=== PATIENT | female | born 1945 | race African-American/Black ===

== ENCOUNTER 2024-03-20 13:26 | Emergency (ER) | payer BC, OTHER ==
[~2024-03-20] VITALS: Ht 157.5 cm; Wt 59.0 kg
[2024-03-20 13:32] VITALS: BP_SYST 140; PULSE 72; RESP 16; TEMP 98.7; O2SAT 99
[2024-03-20] MEDS: HYDROcodone/ACETAMIN 5-325 MG TAB (NORCO/ VICODIN) PO ONE (15:10)
[2024-03-20] MEDS: KETOROLAC TROMETHAMINE 30 MG VIAL IM ONE (15:10)
[2024-03-20 15:18] LABS: BASOPHILS # (AUTO) 0.1 K/uL (0.0-0.2); BASOPHILS % (AUTO) 0.8 % (0.0-2.0); EOSINOPHILS # (AUTO) 0.1 K/uL (0.0-0.4); EOSINOPHILS % (AUTO) 0.8 % (0.0-4.0); HEMATOCRIT 37.2 % (36-48); HEMOGLOBIN 12.5 g/dL (12.0-16.0); LYMPHOCYTES # (AUTO) 1.6 K/uL (1.0-5.5); LYMPHOCYTES % (AUTO) 18.5 % (20.5-51.5); MEAN CORPUSCULAR HEMOGLOBIN 25 pg (27-31); MEAN CORPUSCULAR HGB CONC 34 % (32-36); MEAN CORPUSCULAR VOLUME 74 fL (79.0-98.0); MONOCYTES # (AUTO) 1.3 K/uL (0.0-1.0); MONOCYTES % (AUTO) 15.1 % (1.7-9.3); NEUTROPHILS # (AUTO) 5.5 K/uL (1.8-7.7); NEUTROPHILS % (AUTO) 64.8 % (40.0-70.0); PLATELET COUNT (AUTO) 240 K/uL (130-430); RED CELL DISTRIBUTION WIDTH 15.2 % (9.0-15.0); WHITE BLOOD COUNT (AUTO) 8.5 K/uL (4.8-10.8)
[2024-03-20 15:33] LABS: ERYTHROCYTE SEDIMENTATION RATE 15 MM/HR (0-20)
[2024-03-20 16:08] LABS: ANION GAP 7 (5-15); CALCIUM 8.8 mg/dL (8.4-11.0); CARBON DIOXIDE 31 mmol/L (23-29); CHLORIDE 102 mmol/L (98-107); CREATININE 0.89 mg/dL (0.55-1.30); GLUCOSE 117 mg/dL (74-106); POTASSIUM 3.2 mmol/L (3.5-5.1); SODIUM SERUM 140 mmol/L (136-145); UREA NITROGEN, BLOOD 16 mg/dL (8-21); URIC ACID 3.3 mg/dL (2.4-7.0)
[2024-03-20] MEDS ORDERED: IBUP-1969 PO (16:44)
[2024-03-20] MEDS ORDERED: HYDR-3927 PO (16:44)
[2024-03-20 17:02] VITALS: BP_SYST 140; PULSE 72; RESP 16; TEMP 98.7; O2SAT 99
== END 2024-03-20 16:54 | disposition home or self-care (01) ==
LOC: SED 13:26
DX: M06.832 Other specified rheumatoid arthritis, left wrist (principal); Z79.899 Other long term (current) drug therapy
CPT/HCPCS: 99284; 80048; 84550; 85025; 85610; 85651; 85730; 36415; 73120; 96372; 82397; J1885